=== PATIENT | male | born 2000 | race Caucasian/White ===

== ENCOUNTER 2022-04-07 23:41 | Emergency (ER) | payer SELFPAY ==
[2022-04-08] MEDS ORDERED: Lidocaine 1% PF 5 ML VIAL ONE (02:36)
[2022-04-08] MEDS ORDERED: Boostrix 0.5 ML (Tdap) VIAL (>/=7 yrs of age) ONE (02:37)
== END 2022-04-08 03:13 | disposition home or self-care (01) ==
LOC: ERS 23:41
DX: S61.011A Laceration without foreign body of right thumb without damage to nail, initial encounter (principal); S60.221A Contusion of right hand, initial encounter; W22.09XA Striking against other stationary object, initial encounter; F17.210 Nicotine dependence, cigarettes, uncomplicated; Z23 Encounter for immunization
CPT/HCPCS: 12001; 90471; 90715